=== PATIENT | male | born 1990 | race Caucasian/White ===

== ENCOUNTER 2016-05-14 21:31 | Emergency (ER) | payer OTHER ==
[2016-05-14 22:05] LABS: BASOPHIL 0.3 % (0-2); EOSINOPHIL 0.2 % (0-5); HCT 42.5 % (42.0-52.0); HGB 14.6 g/dl (13.2-18.0); LYMPHOCYTE 14.8 % (15-48); MCHC 34.4 g/dL (32.0-36.0); MCV 81.6 fL (78.0-100.0); MONOCYTE 7.6 % (0-12); MPV 9.2 fL (6.0-9.5); NEUTROPHIL 77.1 % (41-80); PLT 285 K/uL (150-400); RBC 5.21 M/uL (4.70-6.00); RDW 13.2 % (11.5-14.0); WBC 9.7 K/uL (4.0-10.5)
[2016-05-14 22:26] LABS: ACETAMINOPHEN (TYLENOL) < 5.0 ug/mL (10.0-30.0); ALCOHOL (ETOH) MEDICAL NONE DETECTED; SALICYLATE < 6 ug/mL (0-300)
[2016-05-14 22:27] LABS: ALBUMIN 4.6 g/dL (3.5-5.0); BILIRUBIN - TOTAL 0.2 mg/dL (0.1-1.0); GLOBULIN (CALCULATION) 2.4 g/dL (2.2-4.2); POTASSIUM 3.5 mmol/L (3.5-5.1)
== END 2016-05-14 23:56 | disposition home or self-care (01) ==
LOC: FER 21:31
PROVIDERS: Emergency Medicine
DX: R55 Syncope and collapse (principal); R56.9 Unspecified convulsions
CPT/HCPCS: 36415; 70450; 80053; 80305; 85025; G0480; J2405